=== PATIENT | female | born 1970 | race American Indian/Alaskan Native ===

== ENCOUNTER 2019-04-05 22:36 | Emergency (ER) | payer SELFPAY ==
[2019-04-05] MEDS ORDERED: PEPCID IV ONE (23:14)
[2019-04-05] MEDS ORDERED: TORADOL IV ONE (23:14)
[2019-04-05] MEDS ORDERED: NACL 0.9% 500 ML 500 ML IV ONE (23:15)
[2019-04-05] MEDS ORDERED: TESSALON PERLES PO ONE (23:15)
[2019-04-05 23:37] LABS: Hematocrit 39.9 % (30.3-42.9); Hemoglobin 13.8 gm/dl (10.1-14.3); Mean Corpuscular HGB Conc 35 % (30-34); Mean Corpuscular Volume 89 fl (79-97); Platelet Count 351 K/mm3 (140-440); Red Blood Count 4.48 M/mm3 (3.65-5.03); Red Cell Distribution Width 14.7 % (13.2-15.2)
--- NOTE | 2019-04-05 23:48 | XRay Report ---
CHEST 2 VIEWS INDICATION: Chest Pain. COMPARISON: None. FINDINGS: Support devices: None. Heart: Within normal limits. Lungs/Pleura: No acute air space or interstitial disease. No significant pleural effusion. IMPRESSION: No acute findings. Signer Name: Luis Aviles MD Signed: 04/05/2019 11:44 PM Workstation Name: [id number]
[2019-04-05 23:59] LABS: BUN/Creatinine Ratio 12; Blood Urea Nitrogen 6 mg/dL (7-17); Calcium 10.2 mg/dL (8.4-10.2); Hemolysis Index 3
--- NOTE | 2019-04-06 00:39 | Emergency Department Report ---
ED Chest Pain HPI - General Chief Complaint: Chest Pain Stated Complaint: CHEST PAIN Time Seen by Provider: 04/05/19 22:50 Source: EMS Mode of arrival: Stretcher Limitations: No Limitations - History of Present Illness Initial Comments: 48-year-old female with a past medical history of asthma without previous intubations and GERD presents to the hospital complaints of left-sided chest pain 3 days. For the past 5 days patient has had a cough that is adducted of mucous but she swallows it before seeing what color it is. She has had increased wheezing and shortness of breath. She was seen in the ER at [facility] [place] 01 and was prescribed prednisone. Patient took 5 days of prednisone 50 mg with last dose yesterday. The last 3 days she has had a left sided mid chest pain described as a constant squeezing tightness with intermittent sharp pain with palpation, movement, cough, and deep inspiration. Patient is concerned that the prednisone might be causing her symptoms however, patient is also having a lot of coughing. She is also a smoker. She denies hypertension, diabetes, elevated cholesterol, or history of CAD. Her father at age 62 and had heart problems and she thinks he had heart problems starting at age 55 but is unsure. She denies history of PE/DVT, or recent travel, control pill use, calf tenderness, leg edema, or fever. She is not taking any medication for pain. EKG sent by EMS showed sinus tach in the 120s and she received 1 nitroglycerin sublingual and routes and reports some improvement in her chest pain. Severity scale (0 -10): 3 - Related Data Previous Rx's Medication Instructions Recorded Last Taken Type Azithromycin [Zithromax Z-JOAQUIM] 1 dose PO DAILY 5 Days tab 04/06/19 Unknown Rx Benzonatate [Tessalon Perles] 100 mg PO Q8HR PRN #20 capsule 04/06/19 Unknown Rx Famotidine [Pepcid] 20 mg PO BID #20 tablet 04/06/19 Unknown Rx Ibuprofen [Motrin] 600 mg PO Q8H PRN #25 tablet 04/06/19 Unknown Rx traMADol [Ultram 50 MG tab] 50 mg PO Q6HR PRN #14 tablet 04/06/19 Unknown Rx Allergies Allergy/AdvReac Type Severity Reaction Status Date / Time Penicillins Allergy Hives Verified 04/05/19 23:17 Heart Score - HEART Score History: Slightly suspicious EKG: Normal Age: 45-65 Risk factors: 1-2 risk factors Troponin: < normal limit HEART Score: 2 ED Review of Systems ROS: Stated complaint: CHEST PAIN Other details as noted in HPI Comment: All other systems reviewed and negative ED Past Medical Hx - Past Medical History Previous Medical History?: Yes Hx GERD: Yes Hx Asthma: Yes - Surgical History Past Surgical History?: No - Social History Smoking Status: Light Tobacco Smoker Substance Use Type: Alcohol - Medications Home Medications: Home Medications Medication Instructions Recorded Confirmed Last Taken Type Azithromycin [Zithromax Z-JOAQUIM] 1 dose PO DAILY 5 Days tab 04/06/19 Unknown Rx Benzonatate [Tessalon Perles] 100 mg PO Q8HR PRN #20 capsule 04/06/19 Unknown Rx Famotidine [Pepcid] 20 mg PO BID #20 tablet 04/06/19 Unknown Rx Ibuprofen [Motrin] 600 mg PO Q8H PRN #25 tablet 04/06/19 Unknown Rx traMADol [Ultram 50 MG tab] 50 mg PO Q6HR PRN #14 tablet 04/06/19 Unknown Rx ED Physical Exam - General Limitations: No Limitations - Other Other exam information: General: No acute distress Head: Atraumatic Eyes: Normal appearance, Pupils equal and reactive to light, extraocular movements intact ENT: Normal oropharynx Neck: Normal appearance, no posterior or midline tenderness, no meningismus Chest: Clear to auscultation bilaterally, no wheezes, rales, or crackles CV: Regular rate and rhythm, reproducible chest tenderness in the mid left chest area above the breasts. Abdomen: soft, normal bowel sounds, nontender, nondistended, no rebound or guarding Back: Nontender Extremity: Normal inspection, full range of motion, nontender, no calf tenderness or edema Neuro: Alert and oriented 3, speech clear, no gross motor or sensory deficit Skin: No rash, redness, warmth ED Course Vital Signs 04/05/19 04/05/19 04/05/19 22:57 23:01 23:15 Temperature 98.9 F 98.9 F Pulse Rate 110 H 110 H 98 H Respiratory 20 20 13 Rate Blood Pressure 136/84 136/84 Blood Pressure 136/84 [Left] O2 Sat by Pulse 99 99 99 Oximetry 04/05/19 04/06/19 23:45 00:31 Temperature Pulse Rate 92 H 87 Respiratory 16 17 Rate Blood Pressure 136/84 136/84 Blood Pressure [Left] O2 Sat by Pulse 100 100 Oximetry - Reevaluation(s) Reevaluation #1: 04/06/19 00:48 She reports feeling "much better" after receiving Toradol. Resting heart rate is currently in the 90s. STEPAN score - Stepan Score Age > 65: (0) No Aspirin use within the Past 7 Days: (0) No 3 or more CAD Risk Factors: (0) No 2 or more Angina events in past 24 hrs: (0) No Known CAD with more than 50% Stenosis: (0) No Elevated Cardiac Markers: (0) No ST Deviation Greater than 0.5mm: (0) No STEPAN Score: 0 ED Medical Decision Making - Lab Data Result diagrams: 04/05/19 23:22 04/05/19 23:22 Lab Results 04/05/19 04/05/19 04/05/19 Range/Units 23:22 23:22 23:22 WBC 8.4 (4.5-11.0) K/mm3 RBC 4.48 (3.65-5.03) M/mm3 Hgb 13.8 (10.1-14.3) gm/dl Hct 39.9 (30.3-42.9) % MCV 89 (79-97) fl MCH 31 (28-32) pg MCHC 35 H (30-34) % RDW 14.7 (13.2-15.2) % Plt Count 351 (140-440) K/mm3 Seg Neutrophils % Railroad Inspector D-Dimer (0-234) ng/mlDDU Sodium 139 (137-145) mmol/L Potassium 4.3 (3.6-5.0) mmol/L Chloride 98.1 (98-107) mmol/L Carbon Dioxide 23 (22-30) mmol/L Anion Gap 22 mmol/L BUN 6 L (7-17) mg/dL Creatinine 0.5 L (0.7-1.2) mg/dL Estimated GFR > 60 ml/min BUN/Creatinine Ratio 12 % Glucose 141 H (65-100) mg/dL Calcium 10.2 (8.4-10.2) mg/dL Troponin T < 0.010 (0.00-0.029) ng/mL HCG, Qual Negative (Negative) 04/05/19 Range/Units 23:22 WBC (4.5-11.0) K/mm3 RBC (3.65-5.03) M/mm3 Hgb (10.1-14.3) gm/dl Hct (30.3-42.9) % MCV (79-97) fl MCH (28-32) pg MCHC (30-34) % RDW (13.2-15.2) % Plt Count (140-440) K/mm3 Seg Neutrophils % D-Dimer 144.03 (0-234) ng/mlDDU Sodium (137-145) mmol/L Potassium (3.6-5.0) mmol/L Chloride (98-107) mmol/L Carbon Dioxide (22-30) mmol/L Anion Gap mmol/L BUN (7-17) mg/dL Creatinine (0.7-1.2) mg/dL Estimated GFR ml/min BUN/Creatinine Ratio % Glucose (65-100) mg/dL Calcium (8.4-10.2) mg/dL Troponin T (0.00-0.029) ng/mL HCG, Qual (Negative) - EKG Data -: EKG Interpreted by Ok EKG shows normal: sinus rhythm, axis (qrs 11), QRS complexes (qrsd 66), ST-T waves (no stmei) Rate: tachycardia (401) - Radiology Data Radiology results: report reviewed CHEST 2 VIEWS INDICATION: Chest Pain. COMPARISON: None. FINDINGS: Support devices: None. Heart: Within normal limits. Lungs/Pleura: No acute air space or interstitial disease. No significant pleural effusion. IMPRESSION: No acute findings. - Medical Decision Making pt with chest wall pain with recent hx of cough and wheezing improved with toradol heart score less than 4, neg trop, neg ddimer, sinus ekg pt will be d/odilia with sx tx for pain, cough, and abx for bronchitis for persistent coughing. room air sat 98-99% HR 90's - Differential Diagnosis costochondritis, chest wall strain, pneumonia, bronchitis, PE, AK Critical Care Time: No Critical care attestation.: If time is entered above; I have spent that time in minutes in the direct care of this critically ill patient, excluding procedure time. ED Disposition Clinical Impression: Acute bronchitis, Asthma, Chest wall muscle strain Disposition: DC- TO HOME OR SELFCARE Is pt being admited?: No Does the pt Need Aspirin: No Condition: Stable Instructions: Asthma (ED), Acute Bronchitis (ED), Thoracic Pain (ED) Additional Instructions: Take the medication as prescribed. Follow-up with your doctor or the doctor/clinic provided. Return is symptoms worsen as indicated by your discharge instructions. Prescriptions: Ibuprofen [Motrin] 600 mg PO Q8H PRN #25 tablet PRN Reason: Pain Famotidine [Pepcid] 20 mg PO BID #20 tablet Benzonatate [Tessalon Perles] 100 mg PO Q8HR PRN #20 capsule PRN Reason: Cough traMADol [Ultram 50 MG tab] 50 mg PO Q6HR PRN #14 tablet PRN Reason: Pain Azithromycin [Zithromax Z-JOAQUIM] 1 dose PO DAILY 5 Days tab Referrals: SANDY HEREDIA MD [Primary Care Provider] - 3-5 Days NICHO DUNLAP MD [Staff Physician] - 3-5 Days Forms: Work/School Release Form(ED) Time of Disposition: 01:19
[2019-04-06 02:07] VITALS: BP 115/77
[2019-04-06 05:00] LABS: Anisocytosis 1+; Basophils % (Manual) 0 % (0.0-1.8); Eosinophils % (Manual) 0 % (0.0-4.3); Monocytes % (Manual) 0 % (0.0-7.3); Platelet Estimate Consistent w Auto; Total Cells Counted 100
== END 2019-04-06 02:07 | disposition home or self-care (01) ==
LOC: ED 22:36
DX: S29.011A Strain of muscle and tendon of front wall of thorax, initial encounter (principal); J45.909 Unspecified asthma, uncomplicated; J20.9 Acute bronchitis, unspecified; K21.9 Gastro-esophageal reflux disease without esophagitis; F17.200 Nicotine dependence, unspecified, uncomplicated; Z79.899 Other long term (current) drug therapy; Z88.0 Allergy status to penicillin; X58.XXXA Exposure to other specified factors, initial encounter; Y93.89 Activity, other specified; Y92.89 Other specified places as the place of occurrence of the external cause; Y99.8 Other external cause status
CPT/HCPCS: 36415; 71046; 80048; 84484; 84703; 85007; 85025; 85379; 93005; 93010; 96374; 96375; 99284; J1885; J7040

== ENCOUNTER 2020-04-04 07:17 | Emergency (ER) | payer SELFPAY ==
[2020-04-04 07:32] VITALS: BP 124/75
== END 2020-04-04 11:43 ==
LOC: ED 07:17
DX: J45.909 Unspecified asthma, uncomplicated (principal); Z53.21 Procedure and treatment not carried out due to patient leaving prior to being seen by health care provider

== ENCOUNTER 2020-05-15 23:14 | Emergency (ER) | payer SELFPAY ==
[2020-05-15 23:27] VITALS: BP 165/83
[2020-05-16] MEDS ORDERED: LIDOCAINE-MPF (1%) 10 MG/1 ML VIAL 5 ML INFILTRATI ONE (03:40)
[2020-05-16] MEDS ORDERED: IBUPROFEN 600 MG TAB PO ONE (03:40)
[2020-05-16] MEDS ORDERED: ACETAMINOPHEN 500 MG TAB PO ONE (03:40)
[2020-05-16] MEDS ORDERED: DIPHtheria,PERTUSSIS(ACELL),TETANUS VACCINE/PF 0.5 ML VIAL IM ONE (03:41)
--- NOTE | 2020-05-16 03:44 | Emergency Department Report ---
- General Chief Complaint: Wound/Laceration Stated Complaint: RIGHT SMALL FINGER LACERATION Source: patient Mode of arrival: Ambulatory Limitations: No Limitations - History of Present Illness Initial Comments: Patient is a 49-year-old -[place] female with past medical history of asthma and GERD and who presents to the ED with complaint of acute onset persist painful bleeding right small finger laceration after the bottle top of a beer bottle cut her right small finger about 4 hours ago. Patient states that the bleeding is not controlled. Patient also states that she is not up-to-date with her tetanus vaccinations. Patient denies numbness and tingling or weakness of right hand or right small finger, nausea, vomiting, fall, loss of consciousness or dizziness. -: Sudden, hour(s) (4) Location: other (right small finger) Extremity Location: Right: Hand (right small finger laceration) Place: home Patient Tetanus UTD: No (Given during this visit) Context: accidental, sharp object use Associated Symptoms: pain. denies: loss of feeling/numbness, suspect foreign body present, unable to move injured part, weakness followed by dizziness, nausea/vomiting, fever Treatments Prior to Arrival: bandage - Related Data Previous Rx's Medication Instructions Recorded Last Taken Type Azithromycin [Zithromax Z-JOAQUIM] 1 dose PO DAILY 5 Days tab 04/06/19 Unknown Rx Benzonatate [Tessalon Perles] 100 mg PO Q8HR PRN #20 capsule 04/06/19 Unknown Rx Famotidine [Pepcid] 20 mg PO BID #20 tablet 04/06/19 Unknown Rx traMADoL [Ultram 50 MG tab] 50 mg PO Q6HR PRN #14 tablet 04/06/19 Unknown Rx Acetaminophen/Codeine [Tylenol 1 tab PO Q6H PRN #10 tab 05/16/20 Unknown Rx /Codeine # 3 tab] Ibuprofen [Motrin 600 MG tab] 600 mg PO Q8H PRN #30 tablet 05/16/20 Unknown Rx Sulfamethoxazole/Trimethoprim 1 each PO Q12H #20 tablet 05/16/20 Unknown Rx [Bactrim DS TAB] Allergies Allergy/AdvReac Type Severity Reaction Status Date / Time Penicillins Allergy Hives Verified 04/05/19 23:17 ED Review of Systems ROS: Stated complaint: RIGHT SMALL FINGER LACERATION Other details as noted in HPI Constitutional: denies: chills, fever Eyes: denies: eye pain, eye discharge, vision change ENT: denies: ear pain, throat pain Respiratory: denies: cough, shortness of breath, wheezing Cardiovascular: denies: chest pain, palpitations Endocrine: no symptoms reported Gastrointestinal: denies: abdominal pain, nausea, diarrhea Genitourinary: denies: urgency, dysuria, discharge Musculoskeletal: arthralgia (Right small finger laceration with bleeding and pain). denies: back pain, joint swelling Skin: other (Bleeding right small finger laceration). denies: rash, lesions Neurological: denies: headache, weakness, paresthesias Psychiatric: denies: anxiety, depression Hematological/Lymphatic: denies: easy bleeding, easy bruising ED Past Medical Hx - Past Medical History Previous Medical History?: Yes Hx GERD: Yes Hx Asthma: Yes - Surgical History Past Surgical History?: Yes Additional Surgical History: right pinky finger 20 years ago - Social History Smoking Status: Current Every Day Smoker Substance Use Type: None - Medications Home Medications: Home Medications Medication Instructions Recorded Confirmed Last Taken Type Azithromycin [Zithromax Z-JOAQUIM] 1 dose PO DAILY 5 Days tab 04/06/19 Unknown Rx Benzonatate [Tessalon Perles] 100 mg PO Q8HR PRN #20 capsule 04/06/19 Unknown Rx Famotidine [Pepcid] 20 mg PO BID #20 tablet 04/06/19 Unknown Rx traMADoL [Ultram 50 MG tab] 50 mg PO Q6HR PRN #14 tablet 04/06/19 Unknown Rx Acetaminophen/Codeine [Tylenol 1 tab PO Q6H PRN #10 tab 05/16/20 Unknown Rx /Codeine # 3 tab] Ibuprofen [Motrin 600 MG tab] 600 mg PO Q8H PRN #30 tablet 05/16/20 Unknown Rx Sulfamethoxazole/Trimethoprim 1 each PO Q12H #20 tablet 05/16/20 Unknown Rx [Bactrim DS TAB] ED Physical Exam - General Limitations: No Limitations General appearance: alert, in no apparent distress - Head Head exam: Present: atraumatic, normocephalic, normal inspection - Eye Eye exam: Present: normal appearance, PERRL, EOMI Pupils: Present: normal accommodation - ENT ENT exam: Present: normal exam, normal orophraynx, mucous membranes moist, TM's normal bilaterally, normal external ear exam - Neck Neck exam: Present: normal inspection, full ROM - Respiratory Respiratory exam: Present: normal lung sounds bilaterally. Absent: respiratory distress, wheezes, rales, chest wall tenderness, accessory muscle use, decreased breath sounds, prolonged expiratory - Cardiovascular Cardiovascular Exam: Present: normal rhythm, tachycardia, normal heart sounds. Absent: systolic murmur, diastolic murmur, rubs, gallop - GI/Abdominal GI/Abdominal exam: Present: soft, normal bowel sounds. Absent: tenderness, guarding, rebound, hyperactive bowel sounds, hypoactive bowel sounds, mass - Extremities Exam Extremities exam: Present: normal inspection, full ROM, tenderness (Palpable right small finger tenderness due to a bleeding 3 cm laceration), normal capillary refill - Back Exam Back exam: Present: normal inspection, full ROM. Absent: tenderness, CVA tenderness (R), muscle spasm, paraspinal tenderness, vertebral tenderness - Neurological Exam Neurological exam: Present: alert, oriented X3, CN II-XII intact, normal gait, reflexes normal - Psychiatric Psychiatric exam: Present: normal affect, normal mood - Skin Skin exam: Present: warm, dry, intact, normal color, other (Bleeding 3 cm laceration on right small finger). Absent: rash ED Course Vital Signs 05/15/20 05/16/20 23:19 04:10 Temperature 98.7 F Pulse Rate 121 H 85 Respiratory 17 17 Rate Blood Pressure 165/83 O2 Sat by Pulse 96 98 Oximetry - Laceration /Wound Repair Right Lateral Finger Wound Location: upper extremity (Right lateral small finger laceration) Wound Length (cm): 3 Wound's Depth, Shape: superficial, linear Wound Explored: contaminated Irrigated w/ Saline (ccs): 60 Betadine Prep?: Yes Anesthesia: 1% Lidocaine Volume Anesthetic (ccs): 5 Wound Debrided: extensive Wound Repaired With: sutures Suture Size/Type: 4:0, proline Number of Sutures: 7 Layer Closure?: No Sterile Dressing Applied?: Yes Progress: Patient tolerated the procedure well. Patient was treated for pain and also given booster tetanus vaccination. The wound was dressed appropriately after the procedure and the patient was discharged home on pain medications and advised to follow-up with her primary care physician in 5 to 7 days for reevaluation or return to the ED immediately if symptoms get worse. Patient was also advised to return to the ED in 12 to 14 days for suture removal. ED Medical Decision Making - Medical Decision Making This is a 49-year-old -[place] female with past medical history of asthma and GERD and who presents to the ED with complaint of acute onset persist painful bleeding right small finger laceration after the bottle top of a beer bottle cut her right small finger about 4 hours ago. Patient states that the bleeding is not controlled. Patient also states that she is not up-to-date with her tetanus vaccinations. In the ED, patient is alert and oriented x3 and is not in distress but appears to be in pain. Patient was treated for pain in the ED and also given booster tetanus vaccination. The right small finger laceration was cleaned thoroughly and sutured per protocol after application of lidocaine 1% solution to the right small finger as a digital block. Patient tolerated the procedure well. The wound was then cleaned and dressed appropriately and the patient was discharged home on pain medications and prophylactic antibiotics and patient was advised return to the ED immediately if symptoms get worse, otherwise advised to follow-up with her primary care physician in 7 to 10 days for reevaluation. Patient was also advised return to the ED or to her primary care physician in 12 to 14 days for suture removal. - Differential Diagnosis Finger laceration; finger puncture wound; finger abrasion Critical care attestation.: If time is entered above; I have spent that time in minutes in the direct care of this critically ill patient, excluding procedure time. ED Disposition Clinical Impression: Laceration of right little finger w/o foreign body with damage to nail Qualifiers: Encounter type: initial encounter Qualified Code(s): S61.316A - Laceration without foreign body of right little finger with damage to nail, initial encounter Disposition: DC-01 TO HOME OR SELFCARE Is pt being admited?: No Does the pt Need Aspirin: No Condition: Stable Instructions: Puncture Wound (ED), Finger Laceration (ED) Additional Instructions: Take medication with food, drink plenty of fluids and follow-up with your primary care physician in 7 to 10 days for reevaluation. Return to the ED immediately if symptoms get worse. Otherwise return to the ED or to your primary care physician in 12 to 14 days for suture removal. Prescriptions: Sulfamethoxazole/Trimethoprim [Bactrim DS TAB] 1 each PO Q12H #20 tablet Ibuprofen [Motrin 600 MG tab] 600 mg PO Q8H PRN #30 tablet PRN Reason: Pain Acetaminophen/Codeine [Tylenol /Codeine # 3 tab] 1 tab PO Q6H PRN #10 tab PRN Reason: Severe pain Referrals: [facility] [Provider Group] - 3-5 Days Forms: Work/School Release Form(ED) Time of Disposition: 03:49 Print Language: NIGERIEN
== END 2020-05-16 04:10 | disposition home or self-care (01) ==
LOC: ED 23:14
DX: S61.316A Laceration without foreign body of right little finger with damage to nail, initial encounter (principal); K21.9 Gastro-esophageal reflux disease without esophagitis; F17.200 Nicotine dependence, unspecified, uncomplicated; J45.909 Unspecified asthma, uncomplicated; Z88.0 Allergy status to penicillin; Z79.899 Other long term (current) drug therapy; Z98.890 Other specified postprocedural states; W26.9XXA Contact with unspecified sharp object(s), initial encounter; Y92.009 Unspecified place in unspecified non-institutional (private) residence as the place of occurrence of the external cause; Y93.89 Activity, other specified; Y99.8 Other external cause status
CPT/HCPCS: 90471; 90715

== ENCOUNTER 2020-09-27 09:05 | Emergency (ER) | payer OTHER ==
[2020-09-27 09:14] VITALS: BP 152/76
--- NOTE | 2020-09-27 09:26 | Emergency Department Report ---
Chief Complaint: Medical Clearance Stated Complaint: WORK RELATED/JOB INJURY Time Seen by Provider: 09/27/20 09:14 - HPI History of Present Illness: This 49-year-old female healthy individual with no prior medical history presents the ED stating that she needed medical clearance to return back to work. Patient states that she had an incident happened at work last night while she was working. Patient states she was lifting some bags when she accidentally hit her left elbow. Patient states she has some minimal swelling after the incident but has resolved and went down after she iced it. Patient states she was told by her job to get evaluated before she returns to work. Patient states that she is not having any more pain in her left elbow. Patient states she is able to move the elbow without any problems. She denies any swelling or difficulty moving the elbow. She denies any other symptoms. - ROS Review of Systems: All systems reviewed and negative - Exam Vital Signs: Vital Signs 09/27/20 09:13 Temperature 98.0 F Pulse Rate 90 Respiratory 16 Rate Blood Pressure 152/76 [Right] O2 Sat by Pulse 100 Oximetry Physical Exam: GENERAL: Alert and oriented x3, no apparent distress, Normal Gait, atraumatic. HEAD: Head is normocephalic and a-traumatic. EXTREMITIES/MUSCULOSKELETAL: No cyanosis, clubbing, rash, lesions or edema. Full ROM bilaterally on all extremities. UE/LE Pulses 2+ bilaterally. UE 5+ strength bilaterally, brachial and radial pulses present bilaterally and equal NEUROLOGIC: The patient is cooperative with no focal neurologic deficits. Cranial nerves II through XII are grossly intact. Normal speech. SKIN: Warm and dry, No lesions, No ulceration or induration present. MSE screening note: Focused history and physical exam performed. Due to findings the following was ordered: ED Medical Decision Making - Medical Decision Making 49-year-old female presents for medical clearance to return to work Patient's return to work status report filled out. Patient is in no acute distress throughout ED stay. Discussed follow-up with primary care physician within a week. Discussed return to ED if any worsening symptoms. ED Disposition for MSE Clinical Impression: Left elbow pain Disposition: DC-01 TO HOME OR SELFCARE Is pt being admited?: No Does the pt Need Aspirin: No Condition: Stable Instructions: How to Use Cold Therapy, [id number], Joint Pain, [id number] Additional Instructions: Make sure to follow up with the primary care physician as discussed. Take Motrin or Tylenol as needed for pain If you have any worsening symptoms or develop new symptoms please return to ED immediately. Referrals: [facility] [Outside] - 3-[address] [facility] [Outside] - 3-5 Days Forms: Work/School Release Form(ED) Time of Disposition: 09:30
== END 2020-09-27 10:02 | disposition home or self-care (01) ==
LOC: ED 09:05
DX: M25.522 Pain in left elbow (principal); M79.89 Other specified soft tissue disorders; J45.909 Unspecified asthma, uncomplicated; K21.9 Gastro-esophageal reflux disease without esophagitis; Z98.890 Other specified postprocedural states; Z88.0 Allergy status to penicillin
CPT/HCPCS: 99281; 99283

== ENCOUNTER 2021-04-30 22:36 | Emergency (ER) | payer SELFPAY | END 2021-05-01 01:01 | disposition left against medical advice (07) | LOC: ED 22:36 | DX: R07.9 Chest pain, unspecified (principal); Z53.21 Procedure and treatment not carried out due to patient leaving prior to being seen by health care provider ==

== ENCOUNTER 2021-07-19 11:15 | Emergency (ER) | payer BC ==
[2021-07-19 11:28] VITALS: BP 134/74
--- NOTE | 2021-07-19 12:37 | Emergency Department Report ---
ED General Adult HPI - General Chief complaint: Extremity Injury, Upper Stated complaint: hand injury Time Seen by Provider: 07/19/21 12:04 Source: patient Mode of arrival: Ambulatory Limitations: No Limitations - History of Present Illness Initial comments: 50-year-old -Vin[place] female patient presents with complaints of right hand pain x9 days. Patient states she slammed her hand in a door. She denies any numbness/tingling or weakness in the hand. She states that she is unable to make a full fist with her index finger that there is swelling. Patient rates her pain as a 7/10 in severity. -: Sudden Severity scale (0 -10): 8 - Related Data Previous Rx's Medication Instructions Recorded Last Taken Type Azithromycin [Zithromax Z-JOAQUIM] 1 dose PO DAILY 5 Days tab 04/06/19 Unknown Rx Benzonatate [Tessalon Perles] 100 mg PO Q8HR PRN #20 capsule 04/06/19 Unknown Rx Famotidine [Pepcid] 20 mg PO BID #20 tablet 04/06/19 Unknown Rx traMADoL [Ultram 50 MG tab] 50 mg PO Q6HR PRN #14 tablet 04/06/19 Unknown Rx Acetaminophen/Codeine [Tylenol 1 tab PO Q6H PRN #10 tab 05/16/20 Unknown Rx /Codeine # 3 tab] Ibuprofen [Motrin 600 MG tab] 600 mg PO Q8H PRN #30 tablet 05/16/20 Unknown Rx Sulfamethoxazole/Trimethoprim 1 each PO Q12H #20 tablet 05/16/20 Unknown Rx [Bactrim DS TAB] Naproxen [Naprosyn TAB] 500 mg PO BID PRN #20 tablet 07/19/21 Unknown Rx Allergies Allergy/AdvReac Type Severity Reaction Status Date / Time Penicillins Allergy Hives Verified 04/05/19 23:17 ED Review of Systems ROS: Stated complaint: hand injury Other details as noted in HPI Musculoskeletal: joint swelling, arthralgia Skin: denies: change in color Neurological: denies: numbness ED Past Medical Hx - Past Medical History Previous Medical History?: Yes Hx GERD: Yes Hx Asthma: Yes - Surgical History Past Surgical History?: Yes Additional Surgical History: right pinky finger 20 years ago - Social History Smoking Status: Current Every Day Smoker Substance Use Type: Alcohol - Medications Home Medications: Home Medications Medication Instructions Recorded Confirmed Last Taken Type Azithromycin [Zithromax Z-JOAQUIM] 1 dose PO DAILY 5 Days tab 04/06/19 Unknown Rx Benzonatate [Tessalon Perles] 100 mg PO Q8HR PRN #20 capsule 04/06/19 Unknown Rx Famotidine [Pepcid] 20 mg PO BID #20 tablet 04/06/19 Unknown Rx traMADoL [Ultram 50 MG tab] 50 mg PO Q6HR PRN #14 tablet 04/06/19 Unknown Rx Acetaminophen/Codeine [Tylenol 1 tab PO Q6H PRN #10 tab 05/16/20 Unknown Rx /Codeine # 3 tab] Ibuprofen [Motrin 600 MG tab] 600 mg PO Q8H PRN #30 tablet 05/16/20 Unknown Rx Sulfamethoxazole/Trimethoprim 1 each PO Q12H #20 tablet 05/16/20 Unknown Rx [Bactrim DS TAB] Naproxen [Naprosyn TAB] 500 mg PO BID PRN #20 tablet 07/19/21 Unknown Rx ED Physical Exam - General Limitations: No Limitations General appearance: alert, in no apparent distress - Head Head exam: Present: atraumatic, normocephalic - Eye Eye exam: Present: normal appearance - Respiratory Respiratory exam: Absent: respiratory distress - Cardiovascular Cardiovascular Exam: Present: regular rate - Expanded Upper Extremity Exam Right Hand Wrist exam: Present: swelling Hand L/R Back: 1 - Tenderness to palpation noted with minimal swelling; no bruising or redness noted; normal perfusion and sensation of the finger noted; mild limitation of the flexion of the index finger noted - Neurological Exam Neurological exam: Present: alert, oriented X3 - Psychiatric Psychiatric exam: Present: normal affect, normal mood - Skin Skin exam: Present: warm, dry, intact, normal color. Absent: rash ED Course Vital Signs 07/19/21 11:27 Temperature 98.4 F Pulse Rate 86 Respiratory 18 Rate Blood Pressure 134/74 [Right] O2 Sat by Pulse 99 Oximetry ED Medical Decision Making - Radiology Data Radiology results: report reviewed RIGHT HAND 3 VIEWS INDICATION: second finger, MCP, and carpal pain after injury. COMPARISON: None. IMPRESSION: No acute osseous or soft tissue abnormality. No significant DJD. The fifth digit is in flexion on all views. - Medical Decision Making 50-year-old -[place]in[place] female patient presents with complaints of right hand pain x9 days. Patient states she slammed her hand in a door. She denies any numbness/tingling or weakness in the hand. She states that she is unable to make a full fist with her index finger that there is swelling. Patient rates h er pain as a 7/10 in severity. X-rays negative for any acute bony abnormalities. Will treat for hand sprain with rice method and NSAIDs. Recommend follow-up with orthopedics as needed. Patient is well-appearing, her vitals within normal limits, she is stable for discharge home. Discussed signs and symptoms that should prompt immediate return to the ED with patient who verbalizes understanding Critical care attestation.: If time is entered above; I have spent that time in minutes in the direct care of this critically ill patient, excluding procedure time. ED Disposition Clinical Impression: Injury of right hand Disposition: 01 HOME / SELF CARE / HOMELESS Is pt being admited?: No Condition: Stable Instructions: Intermetacarpal Sprain Prescriptions: Naproxen [Naprosyn TAB] 500 mg PO BID PRN #20 tablet PRN Reason: pain Referrals: PRIMARY CARE, [Primary Care Provider] - 3-5 Days [facility] [Provider Group] - as needed Forms: Work/School Release Form(ED)
--- NOTE | 2021-07-19 13:20 | XRay Report ---
RIGHT HAND 3 VIEWS INDICATION: second finger, MCP, and carpal pain after injury. COMPARISON: None. IMPRESSION: No acute osseous or soft tissue abnormality. No significant DJD. The fifth digit is i n flexion on all views. Signer Name: Rocky Sam Jr, MD Signed: 07/19/2021 1:15 PM Workstation Name: [id number]
== END 2021-07-19 15:32 | disposition home or self-care (01) ==
LOC: ED 11:15
DX: S69.91XA Unspecified injury of right wrist, hand and finger(s), initial encounter (principal); J45.909 Unspecified asthma, uncomplicated; F17.200 Nicotine dependence, unspecified, uncomplicated; F10.20 Alcohol dependence, uncomplicated; Z88.0 Allergy status to penicillin; X58.XXXA Exposure to other specified factors, initial encounter; Y93.89 Activity, other specified; Y92.89 Other specified places as the place of occurrence of the external cause; Y99.8 Other external cause status
CPT/HCPCS: 99283

== ENCOUNTER 2021-09-20 22:09 | Inpatient (IN) | payer SELFPAY | END 2021-09-22 00:53 | disposition home or self-care (01) | DRG 74 | LOC: ED 22:09 → 4A 09-21 22:15 → UNDODISIN 09-22 00:22 | PROVIDERS: ADMIT Hospitalist; ATTEND Hospitalist | DX: M54.12 Radiculopathy, cervical region (principal); K21.9 Gastro-esophageal reflux disease without esophagitis; J45.909 Unspecified asthma, uncomplicated; F17.200 Nicotine dependence, unspecified, uncomplicated; Z88.0 Allergy status to penicillin | CPT/HCPCS: G0378 ==

== ENCOUNTER 2021-09-21 19:31 | Inpatient (IN) | payer SELFPAY ==
[2021-09-21] MEDS ORDERED: ASPIRIN 325 MG TAB PO ONE (19:45)
--- NOTE | 2021-09-21 20:22 | XRay Report ---
CHEST 2 VIEWS INDICATION / CLINICAL INFORMATION: chestpain. COMPARISON: 04/05/2019 FINDINGS: SUPPORT DEVICES: None. HEART / MEDIASTINUM: No significant abnormality. LUNGS / PLEURA: No significant pulmonary or pleural abnormality. No pneumothorax. ADDITIONAL FINDINGS: No significant additional findings. IMPRESSION: 1. No acute findings. Signer Name: Gaetano Claros MD Signed: 09/21/2021 8:18 PM Workstation Name: [id number]
[2021-09-21 20:24] LABS: Basophils # (Auto) 0.1 K/mm3 (0.0-0.1); Basophils % (Auto) 1.2 % (0.0-1.8); Eosinophils # (Auto) 0.1 K/mm3 (0.0-0.4); Eosinophils % (Auto) 1.4 % (0.0-4.3); Hematocrit 39.1 % (30.3-42.9); Hemoglobin 12.9 gm/dl (10.1-14.3); Mean Corpuscular HGB Conc 33 % (30-34); Mean Corpuscular Volume 86 fl (79-97); Monocytes # (Auto) 0.5 K/mm3 (0.0-0.8); Monocytes % (Auto) 11.4 % (0.0-7.3); Platelet Count 232 K/mm3 (140-440); Red Blood Count 4.54 M/mm3 (3.65-5.03); Red Cell Distribution Width 16.6 % (13.2-15.2)
[2021-09-21] MEDS ORDERED: NITROGLYCERIN 0.4 MG TAB SUBL SL PRN ×2 (20:39→22:15)
[2021-09-21] MEDS ORDERED: ACETAMINOPHEN 325 MG TAB PO ONE (20:39)
[2021-09-21] MEDS ORDERED: oxyCODONE /ACETAMINOPHEN 5-325MG TAB PO ONE (20:40)
[2021-09-21 20:41] LABS: Alanine Aminotransferase 45 units/L (7-56); Albumin 4.9 g/dL (3.9-5); BUN/Creatinine Ratio 8; Blood Urea Nitrogen 4 mg/dL (7-17); Calcium 9.2 mg/dL (8.4-10.2); Hemolysis Index 7
--- NOTE | 2021-09-21 20:41 | Emergency Department Report ---
ED General Adult HPI - General Chief complaint: Chest Pain Stated complaint: CHEST PAIN Time Seen by Provider: 09/21/21 20:13 Source: patient, RN notes reviewed, old records reviewed Mode of arrival: Ambulatory Limitations: No Limitations - History of Present Illness Initial comments: The patient was evaluated in the emergency department for symptoms described in the history of present illness. He/she was evaluated in the context of the global COVID-19 pandemic, which necessitated consideration that the patient might be at risk for infection with the virus that causes COVID-19. Institutional protocols and algorithms that pertain to the evaluation of patients at risk for COVID-19 are in a state of rapid change based on information released by regulatory bodies including the CDC and federal and state organizations. These policies and algorithms were followed during the patient's care in the emergency department. Please note that these policies, procedures and recommendations changed on a rapid basis. This patient is a 50-year-old female who reports that she is not , reports that she has not delivered her given in the past 6 weeks, and denies travel, surgery, immobilization, oral contraceptive use, DVT and pulmonary embolism risk factors. During the history and physical examination, I am chaperoned by nurse amandatitradha Murcia The patient presents to the ER today with complaints of 2 to 3 days of central, left-sided chest pain that radiates to the left neck, left trapezius, and left upper extremity. She also describes weakness in her left shoulder, and numbness in her left upper extremity. She denies headache, midline neck pain, lower abdominal pain, vomiting, diaphoresis, and exertional shortness of breath. She is occasional tobacco smoker. -: Gradual, days(s) Location: neck, chest, left, upper extremity Radiation: extremity Consistency: constant Improves with: rest Worsens with: movement - Related Data Previous Rx's Medication Instructions Recorded Last Taken Type Azithromycin [Zithromax Z-JOAQUIM] 1 dose PO DAILY 5 Days tab 04/06/19 Unknown Rx Benzonatate [Tessalon Perles] 100 mg PO Q8HR PRN #20 capsule 04/06/19 Unknown Rx Famotidine [Pepcid] 20 mg PO BID #20 tablet 04/06/19 Unknown Rx traMADoL [Ultram 50 MG tab] 50 mg PO Q6HR PRN #14 tablet 04/06/19 Unknown Rx Acetaminophen/Codeine [Tylenol 1 tab PO Q6H PRN #10 tab 05/16/20 Unknown Rx /Codeine # 3 tab] Ibuprofen [Motrin 600 MG tab] 600 mg PO Q8H PRN #30 tablet 05/16/20 Unknown Rx Sulfamethoxazole/Trimethoprim 1 each PO Q12H #20 tablet 05/16/20 Unknown Rx [Bactrim DS TAB] Naproxen [Naprosyn TAB] 500 mg PO BID PRN #20 tablet 07/19/21 Unknown Rx Allergies Allergy/AdvReac Type Severity Reaction Status Date / Time Penicillins Allergy Hives Verified 04/05/19 23:17 ED Review of Systems ROS: Stated complaint: CHEST PAIN Other details as noted in HPI Constitutional: denies: fever, malaise Eyes: denies: eye discharge ENT: denies: congestion Respiratory: denies: cough Cardiovascular: chest pain Gastrointestinal: denies: abdominal pain Musculoskeletal: arthralgia, myalgia Neurological: weakness, numbness, paresthesias. denies: headache Psychiatric: anxiety ED Past Medical Hx - Past Medical History Previous Medical History?: Yes Hx GERD: Yes Hx Asthma: Yes - Surgical History Past Surgical History?: Yes Additional Surgical History: right pinky finger 20 years ago - Social History Smoking Status: Current Every Day Smoker Substance Use Type: None - Medications Home Medications: Home Medications Medication Instructions Recorded Confirmed Last Taken Type Azithromycin [Zithromax Z-JOAQUIM] 1 dose PO DAILY 5 Days tab 04/06/19 Unknown Rx Benzonatate [Tessalon Perles] 100 mg PO Q8HR PRN #20 capsule 04/06/19 Unknown Rx Famotidine [Pepcid] 20 mg PO BID #20 tablet 04/06/19 Unknown Rx traMADoL [Ultram 50 MG tab] 50 mg PO Q6HR PRN #14 tablet 04/06/19 Unknown Rx Acetaminophen/Codeine [Tylenol 1 tab PO Q6H PRN #10 tab 05/16/20 Unknown Rx /Codeine # 3 tab] Ibuprofen [Motrin 600 MG tab] 600 mg PO Q8H PRN #30 tablet 05/16/20 Unknown Rx Sulfamethoxazole/Trimethoprim 1 each PO Q12H #20 tablet 05/16/20 Unknown Rx [Bactrim DS TAB] Naproxen [Naprosyn TAB] 500 mg PO BID PRN #20 tablet 12/09/21 Unknown Rx ED Physical Exam - General Limitations: Physical Limitation General appearance: alert, anxious - Head Head exam: Present: atraumatic, normocephalic - Eye Eye exam: Present: normal appearance, EOMI. Absent: nystagmus - ENT ENT exam: Present: normal exam, normal orophraynx, mucous membranes moist, normal external ear exam - Neck Neck exam: Present: normal inspection, tenderness (There is left paracervical tenderness), full ROM, other (There is no midline cervical spine tenderness or step-off). Absent: meningismus - Respiratory Respiratory exam: Present: normal lung sounds bilaterally. Absent: respiratory distress, wheezes, rales, rhonchi, stridor, chest wall tenderness - Cardiovascular Cardiovascular Exam: Present: normal rhythm, tachycardia, normal heart sounds. Absent: bradycardia, irregular rhythm, systolic murmur, diastolic murmur, rubs, gallop - GI/Abdominal GI/Abdominal exam: Present: soft. Absent: distended, tenderness, guarding, rebound, rigid, pulsatile mass - Extremities Exam Extremities exam: Present: normal inspection, full ROM, other (2+ pulses noted in the bilateral upper and lower extremities. There is no palpable cord. negative Homans sign. Muscular compartments are soft. The pelvis is stable.). Absent: pedal edema, calf tenderness - Back Exam Back exam: Present: normal inspection, paraspinal tenderness. Absent: tenderness, CVA tenderness (R), CVA tenderness (L), vertebral tenderness - Neurological Exam Neurological exam: Present: alert (Patient has 5 out of 5 strength right upper extremity, and bilateral lower extremities.), oriented X3 (Sensation is intact to light touch, proprioception in the bilateral upper and lower extremities.), normal gait, motor sensory deficit (Patient has 5/5 strength left hand, wrist, 4.5 out of 5 strength left elbow/bicep triceps. Patient able to abductor shoulder up to 100 degrees.), reflexes normal, other (There is no facial droop. The tongue is midline. EOMI. Hearing is intact bilaterally.) - Psychiatric Psychiatric exam: Present: anxious - Skin Skin exam: Present: warm, dry, intact, normal color. Absent: rash ED Course Vital Signs 09/21/21 09/21/21 19:35 20:50 Temperature 98.4 F Pulse Rate 107 H Respiratory 18 14 Rate Blood Pressure 177/80 O2 Sat by Pulse 97 Oximetry - Reevaluation(s) Reevaluation #1: 09/21/21 22:04 Differential diagnosis, including but not limited to: GERD, gastritis, hiatal he rnia, pneumonia, costochondritis, cervical radiculopathy, acute coronary syndrome Assessment and plan 50-year-old female, with history of negative D-dimer at this hospital in the past, EKG unchanged from prior, with 3 days of chest pain, left arm pain, neck pain, trapezius pain, and some weakness in the left upper extremity. While tachycardic, the patient is not hypoxic or tachypneic, denies DVT and pulmonary embolism risk factors and she is low risk by Wells criteria. Pulmonary embolism is very unlikely. The patient has no abdominal tenderness, rebound or guarding, x-ray the chest is essentially unremarkable, this is very unlikely to be aortic disease. CT scan of the brain is negative for acute findings. CT scan of the cervical spine demonstrates evidence of probable cervical radiculopathy. Contacted neurosurgeon on-call, Dr. Romero. Discussed the patient's history, physical, CT scan findings, and physical exam findings as well as clinical impression He has also personally reviewed the patient's CT scan of the cervical spine. He endorses that the neurosurgery team can follow in consultation. MRI of the cervical spine with and without gadolinium is recommended. We have recommended admission to the medical service for the aforementioned findings. Patient is agreeable to this plan of care. Hospital physician, Dr. Mckeon to admit to [facility] ED Medical Decision Making - Lab Data Result diagrams: 09/21/21 20:02 09/21/21 20:02 Vital Signs 09/21/21 09/21/21 19:35 20:50 Temperature 98.4 F Pulse Rate 107 H Respiratory 18 14 Rate Blood Pressure 177/80 O2 Sat by Pulse 97 Oximetry Lab Results 09/21/21 09/21/21 09/21/21 Range/Units 20:02 20:02 20:43 WBC 4.5 (4.5-11.0) K/mm3 RBC 4.54 (3.65-5.03) M/mm3 Hgb 12.9 (10.1-14.3) gm/dl Hct 39.1 (30.3-42.9) % MCV 86 (79-97) fl MCH 29 (28-32) pg MCHC 33 (30-34) % RDW 16.6 H (13.2-15.2) % Plt Count 232 (140-440) K/mm3 Lymph % (Auto) 45.0 H (13.4-35.0) % King[place]isher % (Auto) 11.4 H (0.0-7.3) % Eos % (Auto) 1.4 (0.0-4.3) % Baso % (Auto) 1.2 (0.0-1.8) % Lymph # (Auto) 2.0 (1.2-5.4) K/mm3 [place]isher # (Auto) 0.5 (0.0-0.8) K/mm3 Eos # (Auto) 0.1 (0.0-0.4) K/mm3 Baso # (Auto) 0.1 (0.0-0.1) K/mm3 Seg Neutrophils % 41.0 (40.0-70.0) % Seg Neutrophils # 1.9 (1.8-7.7) K/mm3 PT (12.2-14.9) Sec. INR (0.87-1.13) APTT (24.2-36.6) Sec. Sodium 135 L (137-145) mmol/L Potassium 3.7 (3.6-5.0) mmol/L Chloride 95.8 L (98-107) mmol/L Carbon Dioxide 24 (22-30) mmol/L Anion Gap 19 mmol/L BUN 4 L (7-17) mg/dL Creatinine 0.5 L (0.6-1.2) mg/dL Estimated GFR > 60 ml/min BUN/Creatinine Ratio 8 % Glucose 116 H (65-100) mg/dL Calcium 9.2 (8.4-10.2) mg/dL Magnesium 2.10 (1.7-2.3) mg/dL Total Bilirubin 0.50 (0.1-1.2) mg/dL AST 55 H (5-40) units/L ALT 45 (7-56) units/L Alkaline Phosphatase 122 (35-129) units/L Total Creatine Kinase 108 (30-135) units/L Troponin T < 0.010 (0.00-0.029) ng/mL Total Protein 8.2 (6.3-8.2) g/dL Albumin 4.9 (3.9-5) g/dL Albumin/Globulin Ratio 1.5 % TSH (0.270-4.200) mlU/mL 09/21/21 09/21/21 Range/Units 20:43 20:43 WBC (4.5-11.0) K/mm3 RBC (3.65-5.03) M/mm3 Hgb (10.1-14.3) gm/dl Hct (30.3-42.9) % MCV (79-97) fl MCH (28-32) pg MCHC (30-34) % RDW (13.2-15.2) % Plt Count (140-440) K/mm3 Lymph % (Auto) (13.4-35.0) % Kingfisher % (Auto) (0.0-7.3) % Eos % (Auto) (0.0-4.3) % Baso % (Auto) (0.0-1.8) % Lymph # (Auto) (1.2-5.4) K/mm3 [place]isher # (Auto) (0.0-0.8) K/mm3 Eos # (Auto) (0.0-0.4) K/mm3 Baso # (Auto) (0.0-0.1) K/mm3 Seg Neutrophils % (40.0-70.0) % Seg Neutrophils # (1.8-7.7) K/mm3 PT 12.3 (12.2-14.9) Sec. INR 0.82 L (0.87-1.13) APTT 27.9 (24.2-36.6) Sec. Sodium (137-145) mmol/L Potassium (3.6-5.0) mmol/L Chloride (98-107) mmol/L Carbon Dioxide (22-30) mmol/L Anion Gap mmol/L BUN (7-17) mg/dL Creatinine (0.6-1.2) mg/dL Estimated GFR ml/min BUN/Creatinine Ratio % Glucose (65-100) mg/dL Calcium (8.4-10.2) mg/dL Magnesium (1.7-2.3) mg/dL Total Bilirubin (0.1-1.2) mg/dL AST (5-40) units/L ALT (7-56) units/L Alkaline Phosphatase (35-129) units/L Total Creatine Kinase (30-135) units/L Troponin T (0.00-0.029) ng/mL Total Protein (6.3-8.2) g/dL Albumin (3.9-5) g/dL Albumin/Globulin Ratio % TSH 3.320 (0.270-4.200) mlU/mL - EKG Data -: EKG Interpreted by Oh EKG shows normal: sinus rhythm Rate: normal - EKG Data When compared to previous EKG there are: no significant change 09/21/21 22:00 The EKG is interpreted at 19: 45 Sinus rhythm, tachycardia, rate 103 bpm. Normal axis, normal P wave axis, QTC 4 4 0 ms, high left ventricular voltage. Not a STEMI. - Radiology Data Radiology results: report reviewed, image reviewed CHEST 2 VIEWS INDICATION / CLINICAL INFORMATION: chestpain. COMPARISON: 04/05/2019 FINDINGS: SUPPORT DEVICES: None. HEART / MEDIASTINUM: No significant abnormality. LUNGS / PLEURA: No significant pulmonary or pleural abnormality. No pneumothorax. ADDITIONAL FINDINGS: No significant additional findings. IMPRESSION: 1. No acute findings. Signer Name: Gaetano Claros MD Signed: 09/21/2021 7:18 PM Workstation Name: [id number] CT BRAIN: 09/21/2021 INDICATION / CLINICAL INFORMATION: left arm weakness. COMPARISON: None available. FINDINGS: BRAIN/INTRACRANIAL STRUCTURES: Unenhanced CT images of the brain demonstrate no evidence of acute intracranial abnormality. Ventricles and sulci are slightly prominent in size for a patient of this age. There is no evidence of acute ischemic injury, hemorrhage, or mass. There are no abnormal extra-axial fluid collections. EXTRACRANIAL S TRUCTURES: Unremarkable. IMPRESSION: No acute abnormality. All CT scans at this location are performed using dose reduction to ALARA by means of automated exposure control. Signer Name: Khanh Lemus MD Signed: 09/21/2021 8:40 PM Workstation Name: [id number] CT CERVICAL SPINE: 09/21/2021 INDICATION / CLINICAL INFORMATION: left arm weakness neck pain. COMPARISON: None available. FINDINGS: CT images of the cervical spine were obtained. Images are evaluated in the axial, coronal, and sagittal planes. There is no evidence of acute abnormality. Reversal of cervical lordosis is centered at the C4-5 level with the patient positioned for this exam. LEVEL BY LEVEL ANALYSIS: C7-T1: Unremarkable. C6-7: Unremarkable. C5-6: There is evidence of moderate diffuse disc bulging and shallow left paracentral disc protrusion. No definite nerve root compression. C4-5: Moderate diffuse disc bulging with left paracentral disc protrusion and possible narrowing of left neural foramen. C3-4: Unremarkable. C2-3: Unremarkable. CRANIOCERVICAL JUNCTION: Unremarkable. PARASPINAL STRUCTURES: No significant abnormality. IMPRESSION: No evidence of acute osseous injury. Degenerative changes with possible left lateralization at C4-5. Depending on details of the clinical circumstances, further evaluation with MRI or CT myelography may be helpful. All CT scans at this location are performed using dose reduction to ALARA by means of automated exposure control. Signer Name: Khanh Lemus MD Signed: 09/21/2021 8:42 PM Workstation Name: [id number] Critical care attestation.: If time is entered above; I have spent that time in minutes in the direct care of this critically ill patient, excluding procedure time. ED Disposition Clinical Impression: Cervical radiculopathy, Acute chest pain Disposition: 09 ADMITTED INPATIENT Is pt being admited?: Yes Does the pt Need Aspirin: No Condition: Good Instructions: Chest Pain (ED) Heart Score - HEART Score History: Slightly suspicious EKG: Non-specific Age: 45-65 Risk factors: 1-2 risk factors Troponin: < normal limit HEART Score: 3 - EKG Read Time Time EKG Completed: 19:45 EKG Read Time: 19:45 - Critical Actions Critical Actions: 0-3 pts:0.9-1.7%risk of adverse cardiac event.Candidate for discharge
[2021-09-21 21:22] LABS: INR 0.82 (0.87-1.13)
[2021-09-21 21:23] LABS: Partial Thromboplastin Time 27.9 Sec. (24.2-36.6)
--- NOTE | 2021-09-21 21:44 | Cat Scan Report ---
CT BRAIN: 09/21/2021 INDICATION / CLINICAL INFORMATION: left arm weakness. COMPARISON: None available. FINDINGS: BRAIN/INTRACRANIAL STRUCTURES: Unenhanced CT images of the brain demonstrate no evidence of acute int racranial abnormality. Ventricles and sulci are slightly prominent in size for a patient of this age. There is no evidence of acute ischemic injury, hemorrhage, or mass. There are no abnormal extra-axial fluid collections. EXTRACRANIAL STRUCTURES: Unremarkable. IMPRESSION: No acute abnormality. All CT scans at this location are performed using dose reduction to ALARA by means of automated expos ure control. Signer Name: Khanh Lemus MD Signed: 09/21/2021 9:40 PM Workstation Name: [id number]
--- NOTE | 2021-09-21 21:47 | Cat Scan Report ---
CT CERVICAL SPINE: 09/21/2021 INDICATION / CLINICAL INFORMATION: left arm weakness neck pain. COMPARISON: None available. FINDINGS: CT images of the cervical spine were obtained. Images are evaluated in the axial, coronal, and sagitt al planes. There is no evidence of acute abnormality. Reversal of cervical lordosis is centered at the C4-5 level with the patient positioned for this exam . LEVEL BY LEVEL ANALYSIS: C7-T1: Unremarkable. C6-7: Unremarkable. C5-6: There is evidence of moderate diffuse disc bulging and shallow left paracentral disc protrusion . No definite nerve root compression. C4-5: Moderate diffuse disc bulging with left paracentral disc protrusion and possible narrowing of l eft neural foramen. C3-4: Unremarkable. C2-3: Unremarkable. CRANIOCERVICAL JUNCTION: Unremarkable. PARASPINAL STRUCTURES: No significant abnormality. IMPRESSION: No evidence of acute osseous injury. Degenerative changes with possible left lateralization at C4-5. Depending on details of the clinical circumstances, further evaluation with MRI or CT myelography may be helpful. All CT scans at this location are performed using dose reduction to ALARA by means of automated expos ure control. Signer Name: Khanh Lemus MD Signed: 09/21/2021 9:42 PM Workstation Name: [id number]
[2021-09-21] MEDS ORDERED: MORPHINE 4 MG/1 ML INJ IV PRN (22:15)
--- NOTE | 2021-09-21 22:23 | History and Physical Report ---
History of Present Illness Date of examination: 09/21/21 Date of admission: 09/21/21 Chief complaint: Chest pain Left upper extremity pain History of present illness: 50 years old female with history of asthma and GERD was brought to the emergency room because of 2 to 3 days of central, left-sided chest pain that radiates to the left neck, left trapezius, and left upper extremity. She also describes weakness in her left shoulder, and numbness in her left upper extremity. She denies headache, midline neck pain, lower abdominal pain, vomiting, diaphoresis, and exertional shortness of breath. She is occasional tobacco smoker. CT scan of the brain is negative for acute findings. CT scan of the cervical spine demonstrates evidence of probable cervical radiculopathy. Contacted neurosurgeon on-call, Dr. Romero. Discussed the patient's history, physical, CT scan findings, and physical exam findings as well as clinical impression He has also personally reviewed the patient's CT scan of the cervical spine. He endorses that the neurosurgery team can follow in consultation.MRI of the cervical spine with and without gadolinium is recommended. Past History Past Medical History: GERD, other (Asthma) Medications and Allergies Allergies Allergy/AdvReac Type Severity Reaction Status Date / Time Penicillins Allergy Hives Verified 04/05/19 23:17 Home Medications Medication Instructions Recorded Confirmed Last Taken Type Azithromycin [Zithromax Z-JOAQUIM] 1 dose PO DAILY 5 Days tab 04/06/19 Unknown Rx Benzonatate [Tessalon Perles] 100 mg PO Q8HR PRN #20 capsule 04/06/19 Unknown Rx Famotidine [Pepcid] 20 mg PO BID #20 tablet 04/06/19 Unknown Rx traMADoL [Ultram 50 MG tab] 50 mg PO Q6HR PRN #14 tablet 04/06/19 Unknown Rx Acetaminophen/Codeine [Tylenol 1 tab PO Q6H PRN #10 tab 05/16/20 Unknown Rx /Codeine # 3 tab] Ibuprofen [Motrin 600 MG tab] 600 mg PO Q8H PRN #30 tablet 05/16/20 Unknown Rx Sulfamethoxazole/Trimethoprim 1 each PO Q12H #20 tablet 05/16/20 Unknown Rx [Bactrim DS TAB] Naproxen [Naprosyn TAB] 500 mg PO BID PRN #20 tablet 07/19/21 Unknown Rx Active Meds: Active Medications Acetaminophen (Acetaminophen 325 Mg Tab) 650 mg PO Q6H PRN PRN Reason: Pain, Mild (1-3) Aspirin (Aspirin Ec 325 Mg Tab) 325 mg PO QDAY BRANDI Atorvastatin Calcium (Atorvastatin 40 Mg Tab) 40 mg PO QHS [facility] Heparin Sodium (Porcine) (Heparin 5,000 Unit/1 Ml Vial) 5,000 unit SUB-Q Q12HR BRANDI Sodium Chloride (Nacl 0.9% 1000 Ml) 1,000 mls @ 100 mls/hr IV DIRECT BRANDI Morphine Sulfate (Morphine 4 Mg/1 Ml Inj) 2 mg IV Q5MIN PRN PRN Reason: Chest Pain unrelieved by NTG Nitroglycerin (Nitroglycerin 0.4 Mg Tab Subl) 0.4 mg SL .Q5MIN PRN PRN Reason: Chest Pain Nitroglycerin (Nitroglycerin 0.4 Mg Tab Subl) 0.4 mg SL Q5M PRN PRN Reason: Chest Pain Sodium Chloride (Sodium Chloride 0.9% 10 Ml Flush Syringe) 10 ml IV PRN PRN PRN Reason: LINE FLUSH Tramadol HCl (Tramadol 50 Mg Tab) 50 mg PO Q6H PRN PRN Reason: Pain, Moderate (4-6) Review of Systems Cardiovascular: chest pain, other (Left upper extremity pain) Musculoskeletal: other (Arthralgia, myalgia) Neurological: other (weakness, numbness, paresthesias. denies: headache) Psychiatric: anxiety Exam - Constitutional Vitals: Temp Pulse Resp BP Pulse Ox 98.4 F 107 H 14 177/80 97 09/21/21 19:35 09/21/21 19:35 09/21/21 20:50 09/21/21 19:35 09/21/21 19:35 General appearance: Present: no acute distress, well-nourished - EENT Eyes: Present: PERRL ENT: hearing intact, clear oral mucosa - Neck Neck: Present: supple, normal ROM - Respiratory Respiratory effort: normal Respiratory: bilateral: CTA - Cardiovascular Heart Sounds: Present: S1 & S2. Absent: rub, click - Extremities Extremities: pulses symmetrical, No edema Peripheral Pulses: within normal limits - Abdominal General gastrointestinal: Present: soft, non-tender, non-distended, normal bowel sounds Female genitourinary: Present: normal - Integumentary Integumentary: Present: clear, warm, dry - Musculoskeletal Musculoskeletal: gait normal, strength equal bilaterally - Psychiatric Psychiatric: appropriate mood/affect, intact judgment & insight - Neurologic Neurologic: CNII-XII intact, moves all extremities, other (alert (Patient has 5 out of 5 strength right upper extremity, and bilateral lower extremities.), oriented X3 (Sensation is intact to light touch, proprioception in the bilateral upper and lower extremities.), normal gait, motor sensory deficit (Patient has 5/5 strength left hand, wrist, 4.5 out of 5) HEART Score - HEART Score EKG: Non-specific Age: 45-65 Risk factors: 1-2 risk factors Troponin: Troponin T < 0.010 ng/mL (0.00-0.029) 09/21/21 20: Troponin: < normal limit - Critical Actions Critical Actions: 0-3 pts:0.9-1.7%risk of adverse cardiac event.Candidate for discharge Results - Labs CBC & Chem 7: 09/21/21 20:02 09/21/21 20:02 Labs: Laboratory Last Values WBC 4.5 K/mm3 (4.5-11.0) 09/21/21 20: RBC 4.54 M/mm3 (3.65-5.03) 09/21/21 20: Hgb 12.9 gm/dl (10.1-14.3) 09/21/21 20: Hct 39.1 % (30.3-42.9) 09/21/21 20: MCV 86 fl (79-97) 09/21/21 20: MCH 29 pg (28-32) 09/21/21 20: MCHC 33 % (30-34) 09/21/21 20:02 RDW 16.6 % (13.2-15.2) H 09/21/21 20:02 Plt Count 232 K/mm3 (140-440) 09/21/21 20:02 Lymph % (Auto) 45.0 % (13.4-35.0) H 09/21/21 20:02 [place] % (Auto) 11.4 % (0.0-7.3) H 09/21/21 20:02 Eos % (Auto) 1.4 % (0.0-4.3) 09/21/21 20:02 Baso % (Auto) 1.2 % (0.0-1.8) 09/21/21 20:02 Lymph # (Auto) 2.0 K/mm3 (1.2-5.4) 09/21/21 20:02 [place] # (Auto) 0.5 K/mm3 (0.0-0.8) 09/21/21 20:02 Eos # (Auto) 0.1 K/mm3 (0.0-0.4) 09/21/21 20:02 Baso # (Auto) 0.1 K/mm3 (0.0-0.1) 09/21/21 20:02 Seg Neutrophils % 41.0 % (40.0-70.0) 09/21/21 20:02 Seg Neutrophils # 1.9 K/mm3 (1.8-7.7) 09/21/21 20:02 PT 12.3 Sec. (12.2-14.9) 09/21/21 20:43 INR 0.82 (0.87-1.13) L 09/21/21 20:43 APTT 27.9 Sec. (24.2-36.6) 09/21/21 20:43 Sodium 135 mmol/L (137-145) L 09/21/21 20:02 Potassium 3.7 mmol/L (3.6-5.0) 09/21/21 20:02 Chloride 95.8 mmol/L (98-107) L 09/21/21 20:02 Carbon Dioxide 24 mmol/L (22-30) 09/21/21 20:02 Anion Gap 19 mmol/L 09/21/21 20:02 BUN 4 mg/dL (7-17) L 09/21/21 20:02 Creatinine 0.5 mg/dL (0.6-1.2) L 09/21/21 20:02 Estimated GFR > 60 ml/min 09/21/21 20:02 BUN/Creatinine Ratio 8 % 09/21/21 20:02 Glucose 116 mg/dL (65-100) H 09/21/21 20:02 Calcium 9.2 mg/dL (8.4-10.2) 09/21/21 20:02 Magnesium 2.10 mg/dL (1.7-2.3) 09/21/21 20:43 Total Bilirubin 0.50 mg/dL (0.1-1.2) 09/21/21 20:02 AST 55 units/L (5-40) H 09/21/21 20:02 ALT 45 units/L (7-56) 09/21/21 20:02 Alkaline Phosphatase 122 units/L (35-129) 09/21/21 20:02 Total Creatine Kinase 108 units/L (30-135) 09/21/21 20:43 Troponin T < 0.010 ng/mL (0.00-0.029) 09/21/21 20:02 Total Protein 8.2 g/dL (6.3-8.2) 09/21/21 20:02 Albumin 4.9 g/dL (3.9-5) 09/21/21 20:02 Albumin/Globulin Ratio 1.5 % 09/21/21 20:02 TSH 3.320 mlU/mL (0.270-4.200) 09/21/21 20:43 - Imaging and Cardiology CT Scan - head: report reviewed Assessment and Plan VTE prophylaxis?: Chemical Plan of care discussed with patient/family: Yes - Patient Problems (1) Cervical radiculopathy Current Visit: Yes Status: Acute Plan to address problem: Admit the patient to the medical floor. NPO. Normal saline at the rate of 100 cc/h. Tylenol 650 p.o. every 6 hours as needed. Morphine 2 mg IV every 4 hours as needed. We do a MRI of the cervical spine with and without contrast as per neurosurgery recommendation. We will consult Dr. Mojica neurosurgery to see the patient for further evaluation (2) Acute chest pain Current Visit: Yes Status: Acute Plan to address problem: Aspirin 325 mg p.o. daily. Lipitor 40 mg p.o. daily. Nitroglycerin as needed. Serial cardiac enzyme. Consult cardiology if needed (3) Asthma Current Visit: Yes Status: Acute Plan to address problem: Oxygen by nasal cannula 3 L/min. DuoNeb by nebulizer every 4 hours as needed (4) GERD (gastroesophageal reflux disease) Current Visit: Yes Status: Acute Plan to address problem: Pepcid 20 mg p.o. twice daily for GI prophylaxis. We will continue the home medication (5) DVT prophylaxis Current Visit: Yes Status: Acute Plan to address problem: Heparin 5000 units subcu every 12 hours for DVT prophylaxis. Pepcid 20 mg p.o. twice daily for GI prophylaxis. Patient is a full code
[2021-09-21] MEDS ORDERED: ACETAMINOPHEN 325 MG TAB PO PRN (23:00)
[2021-09-21] MEDS ORDERED: traMADol 50 MG TAB PO PRN (23:00)
[2021-09-21] MEDS ORDERED: SODIUM CHLORIDE 0.9% 1000 ML 1,000 ML IV SCH (23:00)
[2021-09-22 01:24] LABS: Blood Urea Nitrogen 4 mg/dL (7-17); Calcium 9.4 mg/dL (8.4-10.2); Hemolysis Index 3
[2021-09-22 01:27] LABS: BUN/Creatinine Ratio 8
[2021-09-22 01:42] LABS: Hematocrit 39.5 % (30.3-42.9); Hemoglobin 13.1 gm/dl (10.1-14.3); Mean Corpuscular HGB Conc 33 % (30-34); Mean Corpuscular Volume 86 fl (79-97); Platelet Count 252 K/mm3 (140-440); Red Blood Count 4.57 M/mm3 (3.65-5.03); Red Cell Distribution Width 16.3 % (13.2-15.2)
[2021-09-22 05:29] LABS: Band Neutrophils # (Manual) 0.1 K/mm3; Basophils % (Manual) 0 % (0.0-1.8); Total Cells Counted 100
[2021-09-22 05:30] LABS: Anisocytosis 1+; Platelet Estimate Consistent w Auto
[2021-09-22] MEDS ORDERED: ASPIRIN EC 325 MG TAB PO SCH (10:00)
[2021-09-22] MEDS ORDERED: HEPARIN 5,000 UNIT/1 ML VIAL SUB-Q SCH (10:00)
--- NOTE | 2021-09-22 10:00 | Progress Note ---
Assessment and Plan Assessment and Plan VTE prophylaxis?: Chemical Plan of care discussed with patient/family: Yes - Patient Problems (1) Cervical radiculopathy Current Visit: Yes Status: Acute Plan to address problem: Morphine 2 mg IV every 4 hours as needed.for pain control -Cervical spine MRI degenerative joint disease as well as lateralization and severe cervical stenosis. Patient does not want surgery and will do it as outpatient. Will follow with surgeon as outpatient after discussion with primary care. -NSAIDs physical therapy most likely require surgical intervention. Patient aware (2) Acute chest pain Current Visit: Yes Status: Acute Plan to address problem: Aspirin 325 mg p.o. daily. Lipitor 40 mg p.o. daily. Nitroglycerin as needed. Serial cardiac enzyme. Does not appear to be cardiac related. Noncardiac related. Cervical radiculopathy. Consult cardiology if needed (3) Asthma Current Visit: Yes Status: Acute Plan to address problem: Oxygen by nasal cannula 3 L/min. DuoNeb by nebulizer every 4 hours as needed No wheezing no coughing. (4) GERD (gastroesophageal reflux disease) Current Visit: Yes Status: Acute Plan to address problem: Pepcid 20 mg p.o. twice daily for GI prophylaxis. We will continue the home medication (5) DVT prophylaxis Current Visit: Yes Status: Acute Plan to address problem: Heparin 5000 units subcu every 12 hours for DVT prophylaxis. Pepcid 20 mg p.o. twice daily for GI prophylaxis. Patient is a full code Subjective Date of service: 09/22/21 Principal diagnosis: Cervical radiculopathy Interval history: 50 years old female with history of asthma and GERD was brought to the emergency room because of 2 to 3 days of central, left-sided chest pain that radiates to the left neck, left trapezius, and left upper extremity. She also describes weakness in her left shoulder, and numbness in her left upper extremity. She denies headache, midline neck pain, lower abdominal pain, vomiting, diaphoresis, and exertional shortness of breath. She is occasional tobacco smoker. CT scan of the brain is negative for acute findings. CT scan of the cervical spine demonstrates evidence of probable cervical radiculopathy. Objective - Constitutional Vitals: Vital Signs - 12hr 09/22/21 09/22/21 09/22/21 02:50 03:28 03:57 Temperature Pulse Rate 100 H 110 H 100 H Respiratory 18 16 Rate Blood Pressure Blood Pressure 136/85 136/85 [Left] O2 Sat by Pulse 97 97 97 Oximetry 09/22/21 09/22/21 03:59 09:08 Temperature 98.5 F Pulse Rate 100 H Respiratory 16 Rate Blood Pressure 117/83 114/47 Blood Pressure [Left] O2 Sat by Pulse 98 Oximetry General appearance: Present: no acute distress, well-nourished - EENT Eyes: PERRL, EOM intact ENT: hearing intact, clear oral mucosa Ears: bilateral: normal - Neck Neck: supple, normal ROM - Respiratory Respiratory effort: normal Respiratory: bilateral: CTA - Breasts Breasts: normal - Cardiovascular Rhythm: regular Heart Sounds: Present: S1 & S2. Absent: gallop, rub Extremities: pulses intact, No edema, normal color, Full ROM - Gastrointestinal General gastrointestinal: Present: soft, non-tender, non-distended, normal bowel sounds - Genitourinary Female genitourinary: normal - Integumentary Integumentary: clear, warm, dry - Musculoskeletal Musculoskeletal: 1, strength equal bilaterally - Neurologic Neurologic: moves all extremities - Psychiatric Psychiatric: memory intact, appropriate mood/affect, intact judgment & insight - Labs CBC & Chem 7: 09/22/21 00:44 09/22/21 00:44 Labs: Abnormal lab results 09/21/21 09/21/21 09/21/21 Range/Units 20:02 20:02 20:43 RDW 16.6 H (13.2-15.2) % Lymph % (Auto) 45.0 H (13.4-35.0) % [place] % (Auto) 11.4 H (0.0-7.3) % Seg Neuts % (Manual) (40.0-70.0) % Lymphocytes % (Manual) (13.4-35.0) % Monocytes % (Manual) (0.0-7.3) % INR 0.82 L (0.87-1.13) Sodium 135 L (137-145) mmol/L Chloride 95.8 L (98-107) mmol/L BUN 4 L (7-17) mg/dL Creatinine 0.5 L (0.6-1.2) mg/dL Glucose 116 H (65-100) mg/dL AST 55 H (5-40) units/L 09/22/21 09/22/21 Range/Units 00:44 00:44 RDW 16.3 H (13.2-15.2) % Lymph % (Auto) (13.4-35.0) % [place] % (Auto) (0.0-7.3) % Seg Neuts % (Manual) 36.0 L (40.0-70.0) % Lymphocytes % (Manual) 49.0 H (13.4-35.0) % Monocytes % (Manual) 10.0 H (0.0-7.3) % INR (0.87-1.13) Sodium 132 L (137-145) mmol/L Chloride 94.8 L (98-107) mmol/L BUN 4 L (7-17) mg/dL Creatinine 0.5 L (0.6-1.2) mg/dL Glucose 141 H (65-100) mg/dL AST (5-40) units/L HEART Score - HEART Score EKG: Non-specific Age: 45-65 Risk factors: 1-2 risk factors Troponin: Troponin T < 0.010 ng/mL (0.00-0.029) 09/22/21 07:04 Troponin: < normal limit - Critical Actions Critical Actions: 0-3 pts:0.9-1.7%risk of adverse cardiac event.Candidate for discharge
--- NOTE | 2021-09-22 11:06 | Electrocardiograph Report ---
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
--- NOTE | 2021-09-22 14:38 | Discharge Summary ---
Providers - Providers Date of Admission: 09/21/21 22:15 Date of discharge: 09/22/21 Attending physician: NICHO DUNLAP 09/21/21 Consult to Cardiac Rehabilitation [CONS] Routine Reason For Exam: Phase I 09/21/21 20:39 Consult to Physician [CONS] Urgent Comment: Consulting Provider: RYAN KO II Physician Instructions: Reason For Exam: left arm weakness ? cervical radiulopathy [facility] Hospitalization Condition: Good Hospital course: pt presented with shoulder pain. consistent with cervical neuropathy radiculopathy now resolved. feels better no pain or weakness R?o via isoenzymes no family history or major risk factors Disposition: 01 HOME / SELF CARE / HOMELESS Final Discharge Diagnosis (Prints w/discharge instructions): cervical radiculopathy - Discharge Diagnoses (1) Asthma Status: Acute (2) Cervical radiculopathy Status: Acute Core Measure Documentation - Palliative Care Palliative Care/ Comfort Measures: Not Applicable - Core Measures Any of the following diagnoses?: none Exam - Constitutional Vitals: Temp Pulse Resp BP Pulse Ox 98.5 F 102 H 18 114/47 98 09/22/21 09:08 09/22/21 11:28 09/22/21 13:05 09/22/21 09:08 09/22/21 13:05 General appearance: Present: no acute distress, well-nourished - EENT Eyes: Present: PERRL ENT: hearing intact, clear oral mucosa - Neck Neck: Present: supple, normal ROM - Respiratory Respiratory effort: normal Respiratory: bilateral: CTA - Cardiovascular Heart Sounds: Present: S1 & S2. Absent: rub, click - Extremities Extremities: pulses symmetrical, No edema Peripheral Pulses: within normal limits - Abdominal General gastrointestinal: Present: soft, non-tender, non-distended, normal bowel sounds Female genitourinary: Present: normal - Integumentary Integumentary: Present: clear, warm, dry - Musculoskeletal Musculoskeletal: gait normal, strength equal bilaterally - Psychiatric Psychiatric: appropriate mood/affect, intact judgment & insight - Neurologic Neurologic: CNII-XII intact, moves all extremities Plan Activity: no restrictions Weight Bearing Status: Full Weight Bearing Diet: regular Follow up with: SANDY HEREDIA MD [Primary Care Provider] - 3-5 Days
--- NOTE | 2021-09-22 15:08 | Magnetic Resonance Report ---
MRI CERVICAL SPINE 09/22/2021 INDICATION / CLINICAL INFORMATION: Cervical radiculopathy. Technologist note:12ML CLARISCAN GIVEN, MULTIPLE REPEATS PATIENT TOLD TO BE STILL, BEST IMAGES SUBMI REDD COMPARISON: None available. FINDINGS: GENERAL OBSERVATIONS: Unenhanced and enhanced MR images of the cervical spine were obtained. Reversal cervical lordosis centered at the C4-5 level. There is no evidence of acute abnormality. There is no evidence of spinal cord compression or intrins ic spinal cord abnormality. Postcontrast images demonstrate no abnormal contrast enhancement. [id number] ANALYSIS: C7-T1: Unremarkable. C6-7: Mild diffuse disc bulging and small central disc protrusion. C5-6: Moderate diffuse disc bulging and small central disc protrusion. C4-5: Prominent diffuse disc bulging and central disc protrusion. Moderately severe central canal le rowing. Left-sided foraminal narrowing due to asymmetric disc bulge, with possible impingement upon t he exiting left C5 nerve root. C3-4: Minimal diffuse disc bulging. C2-3: Unremarkable. CRANIO-CERVICAL JUNCTION: Unremarkable. BONE MARROW: No significant abnormality. PARASPINAL SOFT TISSUES: No significant abnormality. IMPRESSION: Degenerative changes as described above. Left lateralization and severe stenosis at C4-5. Signer Name: Khanh Lemus MD Signed: 09/22/2021 3:04 PM Workstation Name: [id number]
[2021-09-22 16:44] VITALS: BP 148/81
--- NOTE | 2021-09-23 09:57 | Electrocardiograph Report ---
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
== END 2021-09-22 18:32 | disposition home or self-care (01) | DRG 74 ==
LOC: ED 19:31 → 4A 22:15
PROVIDERS: ADMIT Hospitalist; ATTEND Internal Medicine
DX: M54.12 Radiculopathy, cervical region (principal); M54.9 Dorsalgia, unspecified; K21.9 Gastro-esophageal reflux disease without esophagitis; F17.210 Nicotine dependence, cigarettes, uncomplicated; J45.909 Unspecified asthma, uncomplicated
CPT/HCPCS: 36415; 70450; 71046; 72125; 72156; 80048; 80053; 82550; 82962; 83735; 84443; 84484; 85007; 85025; 85610; 85730; 93005; 93010; 99406; G0378; A9575; J1644